=== PATIENT | male | born 1955 | race Caucasian/White ===

== ENCOUNTER 2017-03-07 21:30 | Inpatient (IN) | payer MEDICARE ==
[2017-03-07 23:19] VITALS: BP 102/72
[2017-03-07] MEDS ORDERED: Magnesium Hydroxide (MOM) 30 mL UDC PO PRN (23:40)
[2017-03-07] MEDS ORDERED: Maalox 30 mL Cup PO PRN (23:40)
[2017-03-08] MEDS ORDERED: Multivitamin Tab PO SCH (09:00)
[2017-03-08] MEDS: Albuterol Nebulizer 2.5mg/3mL HHN PRN ×2 (10:43→21:22)
--- NOTE | 2017-03-08 23:51 | Psychosocial Evaluation ---
DATE OF SERVICE: PSYCHIATRIC INITIAL EVALUATION AND MENTAL STATUS EXAM PATIENT'S AGE: 61 SEX: Male. PHYSICIAN: Rosa Collins M.D., M.P.H. CHIEF COMPLAINT: Severe depression and suicidal ideation. HISTORY OF PRESENT ILLNESS: The patient is a 61-year-old male who was admitted to the hospital because of increased depression and because of suicidal ideations with plan to cut his throat. The patient has been paranoid and delusional and has been thinking that "people stealing my money." The patient has been feeling hopeless and helpless and the patient also has lack of energy and lack of patience. The patient states that "I just want to cut my throat like a pig." He also has been having difficulty sleeping at night. PAST PSYCHIATRIC HISTORY: The patient has a history of bipolar disorder. PAST MEDICAL HISTORY: The patient has multiple medical problems including chronic obstructive pulmonary disease and diabetes mellitus. SOCIAL HISTORY: The patient is not but he has 2 children and he was , but twice. He has been depressed because also he has not talked to his children and the children has talked with him course of time. The patient denies any alcohol or street drug use. Denies any legal issues or abuse issues. ALLERGIES: No known allergies. MENTAL STATUS EXAMINATION: The patient appears slightly older than his stated age. Anxious. Sad affect. In a depressed mood. Thought processes are mainly goal directed. The patient denies any auditory or visual hallucinations or delusions. He admits to suicidal ideations, but denies any homicidal ideations. The patient is alert and oriented to time, place, person, and situation. Intact immediate, recent and remote memories. Poor insight. Poor judgment. He seems to be of average intelligence based on his verbal ability. ASSESSMENT: PRIMARY DIAGNOSES: Schizoaffective disorder, bipolar type, with psychotic features, severe. TREATMENT PLAN: We will continue monitoring his behavior and his condition closely. We will continue Seroquel and will adjust the dose. Also, continue to work on his ineffective coping and also adjusting Effexor. ESTIMATED LENGTH OF STAY: 5-7 days. THE PATIENT'S STRENGTHS AND WEAKNESSES: The patient's strength is not clear at this time. Weakness is ineffective coping. AFTER DISCHARGE PLAN: Outpatient treatment and followup will continue as an outpatient. CRITERIA FOR DISCHARGE: The patient will not be suicidal and will stabilize psychotropic medications and will establish outpatient treatment plans. JOB# [id number]
--- NOTE | 2017-03-09 01:07 | History & Physical ---
ADMIT DATE: 03/08/2017 REASON FOR ADMISSION: Psychiatric disorder. HISTORY OF PRESENT ILLNESS: This is a 61-year-old male with an underlying history of COPD; chronic hypoxemic respiratory failure, on BiPAP; hypertension, and mental disorder who was admitted to [facility] for underlying psychiatric illness by Dr. Collins. Dr. Collins requested a medical H and P on this patient. The patient this morning stated that he was complaining of cough and chest congestion for the past few days. Denies any fever, no chills, no vomiting, no body aches, no muscle aches. The patient stated an underlying history of COPD and respiratory failure and wears a BiPAP as needed. Denies any other complaints or concerns. PAST MEDICAL HISTORY: COPD, hypertension, chronic respiratory failure, and mental disorder. PAST SURGICAL HISTORY: Had melanoma surgery on the lip area in the past. FAMILY HISTORY: Denies. SOCIAL HISTORY: Lives alone. Chronic smoker. Denies any alcohol or street drug use. CURRENT MEDICATIONS: The patient is currently on Tylenol, Mylanta, albuterol, Levaquin, Ativan, Lopressor, Milk of magnesia, vitamin C, Seroquel, and Ambien. REVIEW OF SYSTEMS: The patient denies any fever, no chills, no nausea, no vomiting, no abdominal pain, no headache, no trouble vision, no trouble speech, no diarrhea, no vomiting, no melena, no chest pain, no shortness of breath. Complains of a cough and chest congestion. PHYSICAL EXAMINATION: VITAL SIGNS: Temperature 95.3, pulse 101, respirations 20, blood pressure ____ nasal cannula. GENERAL APPEARANCE: The patient does not seem in distress, was lying comfortably, in the bed. HEART: S1 and S2 normal. LUNGS: Bilateral S1 and S2 audible. ABDOMEN: Soft and nontender. NEUROLOGIC: Alert, awake, and oriented. Follows commands. No focal deficits. EXTREMITIES: No edema, no calf tenderness. LABORATORY DATA: Available lab data has been reviewed. ASSESSMENT: 1. Acute bronchitis. 2. Chronic obstructive pulmonary disease. 3. Chronic hypoxemic respiratory failure. 4. Hypertension. 5. Nicotine dependency. 6. Mental disorder. PLAN: The patient was started on Levaquin and bronchodilators. Continue the patient's BiPAP machine. Smoking cessation advised. Metoprolol for blood pressure control. Monitor blood pressure. Spiriva ordered. Psych evaluation and management per Dr. Collins. Thank you, Dr. Collins, for allowing me to participate in the care of this patient. The plan of care discussed with nursing staff. JOB# [id number]
[2017-03-09] MEDS: Albuterol Nebulizer 2.5mg/3mL HHN PRN (01:45)
--- NOTE | 2017-03-10 22:57 | Discharge Summary ---
DATE OF DISCHARGE: 03/09/2017 AGE: 61. SEX: Male. PHYSICIAN: Rosa Collins M.D., M.P.H. PRIMARY DIAGNOSIS: Bipolar disorder, depressed phase. REASON FOR HOSPITALIZATION: The patient was admitted to the hospital because of increased agitation and irritability and inability to follow any directions and also depression and agitation. HOSPITAL COURSE: The patient continued to be anxious and in a depressed mood. The patient also was guarded and withdrawn. The patient also was not able to cope with the stresses. He also was having chest pain and the patient was transferred to ICU because of chest pain. PHYSICAL EXAMINATION UPON ADMISSION: Showed no major medical problems, but the patient developed chest pain and was transferred to ICU. AFTER DISCHARGE PLANS: The patient will be followed in ICU. EXPECTED OUTCOME AFTER DISCHARGE: Depends on the patient's condition in ICU. [facility]# [id number]
== END 2017-03-09 02:40 | DRG 885 ==
LOC: GERO 21:30
PROVIDERS: ADMIT Psychiatry & Neurology Psychiatry; ATTEND Psychiatry & Neurology Psychiatry
PROC: 5A09457 Assistance with Respiratory Ventilation, 24-96 Consecutive Hours, Continuous Positive Airway Pressure (ICD-10-PCS; principal; 2017-03-07)
DX: F25.0 Schizoaffective disorder, bipolar type (principal); J96.10 Chronic respiratory failure, unspecified whether with hypoxia or hypercapnia; J44.0 Chronic obstructive pulmonary disease with (acute) lower respiratory infection; R45.851 Suicidal ideations; E11.9 Type 2 diabetes mellitus without complications; J20.9 Acute bronchitis, unspecified; F29 Unspecified psychosis not due to a substance or known physiological condition; I10 Essential (primary) hypertension; F17.210 Nicotine dependence, cigarettes, uncomplicated; Z71.6 Tobacco abuse counseling
CPT/HCPCS: 36415-UA; 82948-90; 84484-TC; 93005; 94640; 94660; 94760; J7613; Z7610

== ENCOUNTER 2017-03-09 02:40 | Inpatient (IN) | payer MEDICARE ==
[2017-03-09 04:05] VITALS: BP 121/81
[2017-03-09] MEDS: Acetaminophen 500 MG TAB PO PRN ×2 (05:00→10:42)
[2017-03-09] MEDS ORDERED: Albuterol Nebulizer 2.5mg/3mL HHN PRN ×2 (07:31→08:15)
[2017-03-09] MEDS ORDERED: Albuterol Nebulizer 2.5mg/3mL HHN ONE (07:37)
--- NOTE | 2017-03-09 07:49 | Diagnostic Imaging Report ---
CHEST X-RAY: AP view INDICATION: pain COMPARISON: None FINDINGS: Chronic lung changes are seen with no focal consolidation or effusions. Heart size is normal. Mildly tortuous aorta is noted. A spinal stimulator is noted. Degenerative changes of the spine are noted. IMPRESSION: Chronic lung changes with no focal airspace consolidation identified. Spinal stimulator noted.
[2017-03-09] MEDS ORDERED: Albuterol/Ipratropium Neb 3 ML AERS HHN PRN (09:16)
[2017-03-09] MEDS ORDERED: Magnesium Hydroxide (MOM) 30 mL UDC PO PRN (09:18)
[2017-03-09] MEDS ORDERED: Aluminum Hydroxide 30 mL UDC PO PRN (09:18)
[2017-03-09 09:36] LABS: pH 7.47 (7.35-7.45)
[2017-03-09 09:37] LABS: ALLEN TEST YES
--- NOTE | 2017-03-09 09:45 | History & Physical ---
ADMIT DATE: 03/09/2017 CHIEF COMPLAINT: Chest pain. HISTORY OF PRESENT ILLNESS: A 61-year-old male who was admitted to [facility] for psychotic disorder exacerbation. The patient was experiencing chest pain, which allowed him to transfer to medical floor. The patient was admitted to medical floor and patient needs evaluation for his chest pain. I did interview him today and tells me that he was admitted at [facility] for suicidal ideation, but he was started to have a cough, congestion and shortness of breath 2-3 days prior to his presentation of chest pain. He states that his chest pain gets worse when he coughs. The patient has productive cough which he brings up green-yellow phlegm. The patient denies any paroxysmal nocturnal dyspnea or orthopnea, but has exertional shortness of breath. The patient has subjective symptoms of feverish feeling, but no chills. The patient denies any headache, denies any blurred vision, double vision. Denies any dysphagia or odynophagia. Denies any abdominal pain, nausea, vomiting, heartburn, diarrhea, dysuria, hematuria, hematochezia, melena. No history of any seizure or syncopal episode. PAST MEDICAL HISTORY: Remarkable for COPD, hypertension, psychotic disorder as well as osteoarthritis. The patient has a history of melanoma as well. MEDICATIONS: List has been reviewed and reconciled appropriately. ALLERGIES: The patient is not allergic to medications. SOCIAL HISTORY: He lives in [place]. He smokes cigarette. Denies any alcohol or drug use. FAMILY MEDICAL HISTORY: Remarkable for diabetes and hypertension. REVIEW OF SYSTEMS: As I mentioned in history of present illness. PHYSICAL EXAMINATION: GENERAL: A 61-year-old, alert, awake, lying in the bed, without any acute distress. VITAL SIGNS: Temperature 98, pulse is 106, respiratory rate is 20, blood pressure 130/70. HEENT: Normocephalic, atraumatic. Extraocular muscles are intact. Tongue was pink and coated. Oropharynx congested. Oral mucosa congested. NECK: Supple, no JVD, no hepatojugular reflex. No lymphadenopathy, thyromegaly or carotid bruit. HEART: Both heart sounds are regular. No S3, no S4, no murmur. CHEST: Lung equal in expansion with expiratory wheezing throughout. ABDOMEN: Soft. No guarding, no rigidity. Liver, spleen palpable. No palpable mass. Palpable ventral abdominal hernia noted. EXTREMITIES: No edema, no cyanosis, or clubbing. Pulses are +2. No calf tenderness noted. NEUROLOGIC: Alert, awake, oriented, following commands. No gross neuro deficit noted. AVAILABLE DIAGNOSTIC DATA: Chest x-ray performed on 03/09/2017, chronic lung changes, no focal airspace consolidation, spinal stimulator was noted. His troponin was 0.01. EKG has no ST-T wave changes representing acute ischemia. CLINICAL IMPRESSION: 1. Chronic obstructive pulmonary disease exacerbation. 2. Chest pain, mostly musculoskeletal due to excessive coughing. 3. Psychotic disorder exacerbation. 4. Degenerative joint disease. 5. Hypertension by history. 6. History of stimulator, chronic stimulator placement. PLAN: 1. Admit this patient to Med/Surg floor. 2. Oxygen. 3. IV steroid. 4. IV antibiotic. 5. Nebulizer treatment. 6. Psych consult. 7. Appropriate home medicine reconciliation. 8. Symptoms management. 9. Follow lab. 10. Follow psychiatrist recommendation. 11. Care plan reviewed and discussed with the patient as well as his assigned RN. JOB# [id number]
[2017-03-09 10:04] LABS: EOSINOPHILE ABSOLUTE 0.4 Th/cmm (0.1-0.4); HEMATOCRIT 40.2 % (41.0-60); HEMOGLOBIN 13.7 gm/dL (12-16); LYMPHOCYTE ABSOLUTE 0.2 Th/cmm (1.5-3.0); MANUAL DIFF REQUIRED? YES; MEAN CELL VOLUME 90.6 fl (80-99); MEAN CORPUSCULAR HEMOGLOBIN 30.9 pg (26.0-30.0); MEAN CORPUSCULAR HGB CONC 34.1 pg (28.0-36.0); MEAN PLATELET VOLUME 5.9 fl; MONOCYTE ABSOLUTE 2.8 Th/cmm (0.3-1.0); NEUTROPHILE ABSOLUTE 5.2 Th/cmm (1.8-8.0); PLATELET COUNT 305 Th/cmm (150-400); RED BLOOD COUNT 4.44 Mil/cmm (4.30-5.70); RED CELL DISTRIBUTION WIDTH 14.1 % (11.5-20.0); WHITE BLOOD COUNT 8.6 Th/cmm (4.8-10.8)
[2017-03-09 10:07] LABS: TOTAL CELLS COUNTED 100
[2017-03-09 10:20] LABS: ANION GAP 10.7 (7.0-16.0); BUN - UREA NITROGEN 27 mg/dL (7-25); CALCIUM SERUM 8.7 mg/dL (8.6-10.3); CARBON DIOXIDE 29.9 mEq/L (21.0-31.0); CHLORIDE 100 mEq/L (98-107); CREATININE - SERUM 0.7 mg/dL (0.7-1.3); GFR AFRICAN-AMERICAN > 60.0 ml/min (>90); GFR NON AFRICAN-AMERICAN > 60.0 ml/min; GLUCOSE 163 mg/dL (70-105); POTASSIUM SERUM 3.6 mEq/L (3.5-5.1); SODIUM SERUM 137 mEq/L (136-145)
[2017-03-09 10:22] LABS: EOSINOPHIL 1 % (0-5); LYMPHOCYTE 22 % (20-50); MONOCYTE 6 % (2-10); NEUTROPHILS 71 % (40-80)
[2017-03-09] MEDS: Albuterol/Ipratropium Neb 3 ML AERS HHN SCH ×2 (12:39→19:26)
[2017-03-09] MEDS: Azithromycin 500 MG in Sodium Chloride 0.9% 250 ML IV SCH (13:52)
[2017-03-09] MEDS: Hydrocodone/APAP 10 mg/325 mg Tab PO PRN (16:22)
[2017-03-10] MEDS: Albuterol/Ipratropium Neb 3 ML AERS HHN SCH ×4 (01:20→19:30)
--- NOTE | 2017-03-10 02:49 | Consultation ---
DATE OF CONSULTATION: 03/09/[address] Iverson. HISTORY AND PHYSICAL: This is a 61-year-old obese male patient, who has been admitted to [facility] for psychotic disorder and suicidal tendency. The patient developed chest pain. At this time, the patient is admitted to telemetry bed. Cardiac consult requested. No history of PND or orthopnea. PAST MEDICAL HISTORY: Nicotine dependence, COPD, hypertension, psychotic disorder, melanoma. FAMILY HISTORY: Unremarkable. SOCIAL HISTORY: The patient has a history of smoking. ALLERGIES: None. PHYSICAL EXAMINATION: VITAL SIGNS: Blood pressure 130/80, pulse 70, respirations 20. HEAD: Normocephalic. No lumps or bumps. EYES: Pupils equal and reactive to light. Fundi show AV nicking, sclerae white, conjunctivae pink. NECK: Carotid 2+. Normal upstroke. JVD flat. Thyroid not palpable. Lymph nodes not palpable. CHEST: Shows increased AP diameter. No kyphosis, scoliosis. LUNGS: Bilateral bronchovesicular breath sounds. Occasional wheeze. No rales. HEART: PMI fifth intercostal space with lateral to midclavicular line. S1 and S2. No S3 or S4. Soft systolic murmur. ABDOMEN: Soft. Liver and spleen not palpable. No organomegaly. Bowel sounds active. NEUROLOGIC: No focal neurological deficit. EXTREMITIES: Peripheral pulses 2+. No pedal edema. CLINICAL IMPRESSION: Atypical chest pain, chronic obstructive pulmonary disease, nicotine dependence, psychotic disorder, melanoma, hyperlipidemia, and obesity. PLAN: Admit the patient. We will get troponin level, EKG, and echocardiogram. Monitor the patient. JOB# [id number]
[2017-03-10 05:35] LABS: EOSINOPHILE ABSOLUTE 0.7 Th/cmm (0.1-0.4); HEMATOCRIT 40.3 % (41.0-60); HEMOGLOBIN 13.5 gm/dL (12-16); LYMPHOCYTE ABSOLUTE 0.2 Th/cmm (1.5-3.0); MANUAL DIFF REQUIRED? YES; MEAN CELL VOLUME 91.6 fl (80-99); MEAN CORPUSCULAR HEMOGLOBIN 30.7 pg (26.0-30.0); MEAN CORPUSCULAR HGB CONC 33.5 pg (28.0-36.0); MEAN PLATELET VOLUME 6.4 fl; MONOCYTE ABSOLUTE 2.3 Th/cmm (0.3-1.0); NEUTROPHILE ABSOLUTE 5.3 Th/cmm (1.8-8.0); PLATELET COUNT 282 Th/cmm (150-400); RED CELL DISTRIBUTION WIDTH 13.9 % (11.5-20.0); WHITE BLOOD COUNT 8.5 Th/cmm (4.8-10.8)
[2017-03-10 06:00] LABS: ALB/GLOB RATIO 1.6 (1.0-1.8); ALBUMIN 3.8 gm/dL (4.2-5.5); ALKALINE PHOSPHATASE 47 U/L (34-104); ANION GAP 10.3 (7.0-16.0); BILIRUBIN,TOTAL 0.3 mg/dL (0.3-1.0); BUN - UREA NITROGEN 23 mg/dL (7-25); CALCIUM SERUM 8.6 mg/dL (8.6-10.3); CHLORIDE 101 mEq/L (98-107); CREATININE - SERUM 0.6 mg/dL (0.7-1.3); GFR AFRICAN-AMERICAN > 60.0 ml/min (>90); GFR NON AFRICAN-AMERICAN > 60.0 ml/min; GLUCOSE 164 mg/dL (70-105); POTASSIUM SERUM 4.3 mEq/L (3.5-5.1); SGOT 13 U/L (13-39); SGPT/ALT 17 U/L (7-52); SODIUM SERUM 135 mEq/L (136-145); TOTAL PROTEIN,SERUM 6.2 gm/dL (6.0-8.3)
[2017-03-10 06:25] LABS: BAND NEUTROPHILE 5 % (0-10); NEUTROPHILS 88 % (40-80); TOTAL CELLS COUNTED 100
[2017-03-10 06:26] LABS: LYMPHOCYTE 4 % (20-50); MONOCYTE 3 % (2-10)
[2017-03-10] MEDS: Hydrocodone/APAP 10 mg/325 mg Tab PO PRN ×2 (07:46→13:56)
--- NOTE | 2017-03-10 08:34 | General Progress Note ---
Subjective - Review of Systems Subjective: Patient is seen and examined. Patient says I feel little better, patient has minimal pain.Patient denies fever ,chill,chest pain,headache,nausea,vomiting. Objective - Results Result Diagrams: 03/10/17 05:00 03/10/17 05:00 Recent Labs: Laboratory Last Values WBC 8.5 Th/cmm (4.8-10.8) 03/10/17 05:00 RBC 4.40 Mil/cmm (4.30-5.70) 03/10/17 05:00 Hgb 13.5 gm/dL (12-16) 03/10/17 05:00 Hct 40.3 % (41.0-60) L 03/10/17 05:00 MCV 91.6 fl (80-99) 03/10/17 05:00 MCH 30.7 pg (26.0-30.0) H 03/10/17 05:00 MCHC Differential 33.5 pg (28.0-36.0) 03/10/17 05:00 RDW 13.9 % (11.5-20.0) 03/10/17 05:00 Plt Count 282 Th/cmm (150-400) 03/10/17 05:00 MPV 6.4 fl 03/10/17 05:00 Band Neutrophils % 5 % (0-10) 03/10/17 05:00 Neutrophils (Manual) 88 % (40-80) H 03/10/17 05:00 Lymphocytes 4 % (20-50) L 03/10/17 05:00 Monocytes 3 % (2-10) 03/10/17 05:00 Eosinophils 1 % (0-5) 03/09/17 09:50 Specimen Source Arterial 03/09/17 09:15 Sample Site Right Radial 03/09/17 09:15 pH 7.47 (7.35-7.45) H 03/09/17 09:15 pCO2 44.0 mmHg (35.0-45.0) 03/09/17 09:15 pO2 55.0 mmHg (80.0-100.0) L 03/09/17 09:15 HCO3 30.5 mEq/L (20.0-26.0) H 03/09/17 09:15 Base Excess 7.4 mEq/L (-3.0-3.0) H 03/09/17 09:15 O2 Saturation 90.0 % (92.0-100.0) L 03/09/17 09:15 Anthony Test YES 03/09/17 09:15 Vent Rate NA 03/09/17 09:15 Inspired O2 21 03/09/17 09:15 Tidal Volume NA 03/09/17 09:15 PEEP NA 03/09/17 09:15 Pressure (ins/psv/peep) NA 03/09/17 09:15 Critical Value SH 03/09/17 09:15 Sodium 135 mEq/L (136-145) L 03/10/17 05:00 Potassium 4.3 mEq/L (3.5-5.1) 03/10/17 05:00 Chloride 101 mEq/L (98-107) 03/10/17 05:00 Carbon Dioxide 28.0 mEq/L (21.0-31.0) 03/10/17 05:00 Anion Gap 10.3 (7.0-16.0) 03/10/17 05:00 BUN 23 mg/dL (7-25) 03/10/17 05:00 Creatinine 0.6 mg/dL (0.7-1.3) L 03/10/17 05:00 Est GFR ( Amer) > 60.0 ml/min (>90) 03/10/17 05:00 Est GFR (Non-Af Amer) > 60.0 ml/min 03/10/17 05:00 BUN/Creatinine Ratio 38.3 03/10/17 05:00 Glucose 164 mg/dL (70-105) H 03/10/17 05:00 Calcium 8.6 mg/dL (8.6-10.3) 03/10/17 05:00 Total Bilirubin 0.3 mg/dL (0.3-1.0) 03/10/17 05:00 AST 13 U/L (13-39) 03/10/17 05:00 ALT 17 U/L (7-52) 03/10/17 05:00 Alkaline Phosphatase 47 U/L (34-104) 03/10/17 05:00 Troponin I 0.01 ng/mL (0.01-0.05) 03/09/17 09:50 Total Protein 6.2 gm/dL (6.0-8.3) 03/10/17 05:00 Albumin 3.8 gm/dL (4.2-5.5) L 03/10/17 05:00 Globulin 2.4 gm/dL 03/10/17 05:00 Albumin/Globulin Ratio 1.6 (1.0-1.8) 03/10/17 05:00 - Physical Exam Vitals and I&O: Vital Signs Temp 97 F 03/10/17 04:24 Pulse 118 03/10/17 04:24 Resp 22 03/10/17 06:00 BP 110/80 03/10/17 04:24 Pulse Ox 98 03/10/17 05:15 Intake & Output 03/09/17 03/10/17 03/10/17 18:59 06:59 18:59 Intake Total 800 150 Output Total 1000 Balance -200 150 Weight (lbs) 87.543 kg 87.09 kg Intake: Oral 800 150 Output: Urine 1000 Other: # Voids 3 # Bowel Movements 1 0 Active Medications: Current Medications Acetaminophen (Tylenol Extra Strength) 500 mg PO Q6H PRN PRN Reason: Pain (Mild) Stop: 05/08/17 04:28 Last Admin: 03/09/17 10:42 Dose: 500 mg Acetaminophen (Tylenol) 650 mg PO Q4H PRN PRN Reason: Pain or Fever >101 Acetaminophen/Hydrocodone Bitart (Varney 10 Mg/325 Mg) 1 tab PO Q6H PRN PRN Reason: MODERATE PAIN Stop: 05/08/17 09:16 Last Admin: 03/10/17 07:46 Dose: 1 tab Al Hydrox/Mg Hydrox/Simethicone (Maalox) 30 ml PO PCHS PRN PRN Reason: GI DISTRESS Stop: 05/08/17 09:17 Albuterol/Ipratropium (Duoneb Neb) 3 ml HHN Q6HRT [facility] Stop: 05/08/17 12:59 Last Admin: 03/10/17 01:20 Dose: 3 ml Albuterol/Ipratropium (Duoneb Neb) 3 ml HHN Q2HRT PRN PRN Reason: Wheezing Stop: 05/08/17 09:15 Azithromycin 500 mg/ Sodium (Chloride) 250 mls @ 250 mls/hr IV Q24H [facility] Stop: 05/08/17 10:59 Last Admin: 03/09/17 13:52 Dose: 250 mls/hr Lorazepam (Ativan) 0.5 mg PO Q4HR [facility] PRN Reason: Protocol Stop: 05/08/17 11:59 Last Admin: 03/10/17 07:46 Dose: 0.5 mg Magnesium Hydroxide (Milk Of Magnesia) 30 ml PO HS PRN PRN Reason: GI DISTRESS Stop: 05/08/17 09:17 Methylprednisolone Sodium Succinate (Solu-Medrol) 60 mg IV Q8HR [facility] Stop: 05/08/17 12:59 Last Admin: 03/10/17 05:54 Dose: 60 mg Multivitamins/Vitamin C (Theragran) 1 tab PO DAILY [facility] Stop: 05/09/17 08:59 Nitroglycerin (Nitrostat) 0.4 mg SL Q5MIN PRN PRN Reason: Chest Pain Stop: 05/08/17 09:17 Quetiapine Fumarate (Seroquel) 50 mg PO HS [facility] PRN Reason: Protocol Stop: 05/08/17 20:59 Last Admin: 03/09/17 21:06 Dose: 50 mg Quetiapine Fumarate (Seroquel) 100 mg PO BID [facility] PRN Reason: Protocol Stop: 05/08/17 08:59 Last Admin: 03/09/17 16:22 Dose: 100 mg Trazodone HCl (Desyrel) 100 mg PO HS [facility] Stop: 05/08/17 20:59 Last Admin: 03/09/17 21:06 Dose: 100 mg Venlafaxine HCl (Effexor Xr) 150 mg PO DAILY [facility] Stop: 05/08/17 08:59 Last Admin: 03/09/17 09:14 Dose: 150 mg Zolpidem Tartrate (Ambien) 5 mg PO HS PRN PRN Reason: Insomnia Stop: 05/08/17 20:59 General: Alert, Oriented x3, Cooperative, No acute distress HEENT: Atraumatic, PERRLA, EOMI, Mucous membr. moist/pink Neck: Supple, JVD, +2 carotid pulse wo bruit Cardiovascular: Regular rate, Normal S1, Normal S2 Lungs: Normal air movement, Other (diffuse rhonchi+_) Abdomen: Bowel sounds, Soft Extremities: Pulses Neurological: Normal gait, Normal speech, Strength at 5/5 X4 ext Psych/Mental Status: Other (labile) Assessment/Plan - Assessment Assessment: COPD exacerbation. Atypical Chest pain. Psych disorder. Hypertension. DJD. SCOTT. Chronic pain syndrome S/p nerve stimulator and marijuana dependance. Obesity. ? Diabetes hx. - Plan Plan: Oxygen, HHN. IV antibiotics IV steroid Psych meds Psych follow up General nursing care Symptoms control Glycohemoglobin A1c Monitor BP and keep BP med. C PAP at night time. Discussed with RN.
[2017-03-10] MEDS: Multivitamin Tab PO SCH (08:48)
[2017-03-10] MEDS: Azithromycin 500 MG in Sodium Chloride 0.9% 250 ML IV SCH (10:41)
[2017-03-10] MEDS ORDERED: INSULIN ASPART SLIDING SCALE 100 UNITS/ML UNIT SUBQ SCH (11:30)
--- NOTE | 2017-03-10 14:24 | Cardiology ---
03/09/2017 ECHOCARDIOGRAM REPORT A patient of Dr. Iverson. M-MODE ECHOCARDIOGRAM: Mitral valve, anterior leaflet of mitral valve shows normal excursion, EF velocity. Posterior leaflet of mitral valve shows normal excursion. Left ventricular posterior wall shows increased thickness, normal excursion. Interventricular septum shows increased thickness, normal excursion. Hypertrophy of the left ventricle, ejection fraction 50%. Left atrium normal. Aortic root shows normal dimension, normal excursion of aortic leaflets. CONCLUSION: Hypertrophy of the left ventricle, ejection fraction 50%. 2D ECHO: Long axis view showed normal sized left ventricle with hypertrophy of the left ventricle. Left atrium normal. Aortic root shows normal dimension, normal excursion of aortic leaflets. Short axis view of mitral valve normal. Short axis view of aortic valve normal. Apical four chamber view showed normal sized left ventricle with hypertrophy of the left ventricle. Left atrium normal. Right ventricular cavity, right atrium normal, no pericardial effusion. CONCLUSION: Hypertrophy of the left ventricle, ejection fraction 50%. Doppler study shows normal antegrade flow across the mitral valve, tricuspid valve, and the aortic valve. [facility]# [id number]
[2017-03-10] MEDS ORDERED: Probiotic Screen MC PRN (15:45)
[2017-03-10] MEDS: INSULIN ASPART SLIDING SCALE 100 UNITS/ML UNIT SUBQ SCH ×2 (16:21→20:34)
--- NOTE | 2017-03-10 16:26 | Progress Notes ---
DATE: 03/09/2017 The patient in ICU 6. The patient is transferred from [facility] to ICU because the patient developed chest pain. The patient currently is calm and cooperative and he denies any chest pain. Also is following the staff's directions easily. The patient also is compliant with taking his medications with no side effects of medications. ASSESSMENT: The patient still needs close monitoring. TREATMENT PLAN: Continue to monitor his behavior and his medications and continue to work on his irritability which was the main reason for admitting him to [facility]. JOB# [id number]
[2017-03-10 16:50] LABS: A1C % 6.8 % (4.0-6.0)
[2017-03-10] MEDS: Nicotine 21 mg/24 hr Tdm TD SCH (17:24)
[2017-03-10] MEDS: Maalox 30 mL Cup PO PRN (20:36)
[2017-03-11] MEDS: Albuterol/Ipratropium Neb 3 ML AERS HHN SCH ×4 (01:24→19:40)
[2017-03-11 06:07] LABS: ALB/GLOB RATIO 1.6 (1.0-1.8); ALBUMIN 3.6 gm/dL (4.2-5.5); ALKALINE PHOSPHATASE 50 U/L (34-104); ANION GAP 7.7 (7.0-16.0); BILIRUBIN,TOTAL 0.2 mg/dL (0.3-1.0); BUN - UREA NITROGEN 25 mg/dL (7-25); CALCIUM SERUM 8.5 mg/dL (8.6-10.3); CARBON DIOXIDE 29.7 mEq/L (21.0-31.0); CHLORIDE 104 mEq/L (98-107); CREATININE - SERUM 0.6 mg/dL (0.7-1.3); GFR AFRICAN-AMERICAN > 60.0 ml/min (>90); GFR NON AFRICAN-AMERICAN > 60.0 ml/min; GLUCOSE 158 mg/dL (70-105); POTASSIUM SERUM 4.4 mEq/L (3.5-5.1); SGOT 10 U/L (13-39); SGPT/ALT 15 U/L (7-52); SODIUM SERUM 137 mEq/L (136-145); TOTAL PROTEIN,SERUM 5.8 gm/dL (6.0-8.3)
[2017-03-11 06:09] LABS: EOSINOPHILE ABSOLUTE 0.1 Th/cmm (0.1-0.4); HEMOGLOBIN 12.2 gm/dL (12-16); LYMPHOCYTE ABSOLUTE 0.6 Th/cmm (1.5-3.0); MANUAL DIFF REQUIRED? YES; MEAN CELL VOLUME 91.5 fl (80-99); MEAN CORPUSCULAR HEMOGLOBIN 31.4 pg (26.0-30.0); MEAN CORPUSCULAR HGB CONC 34.4 pg (28.0-36.0); MEAN PLATELET VOLUME 6.5 fl; MONOCYTE ABSOLUTE 0.5 Th/cmm (0.3-1.0); NEUTROPHILE ABSOLUTE 16.2 Th/cmm (1.8-8.0); PLATELET COUNT 271 Th/cmm (150-400); RED BLOOD COUNT 3.89 Mil/cmm (4.30-5.70); RED CELL DISTRIBUTION WIDTH 13.8 % (11.5-20.0)
[2017-03-11 06:22] LABS: HEMATOCRIT 35.6 % (41.0-60); WHITE BLOOD COUNT 17.4 Th/cmm (4.8-10.8)
[2017-03-11 06:33] LABS: BAND NEUTROPHILE 4 % (0-10); LYMPHOCYTE 6 % (20-50); MONOCYTE 3 % (2-10); NEUTROPHILS 87 % (40-80); TOTAL CELLS COUNTED 100
[2017-03-11] MEDS: INSULIN ASPART SLIDING SCALE 100 UNITS/ML UNIT SUBQ SCH ×4 (06:45→21:32)
[2017-03-11] MEDS: Multivitamin Tab PO SCH (08:27)
[2017-03-11] MEDS: Hydrocodone/APAP 10 mg/325 mg Tab PO PRN ×2 (08:27→17:07)
[2017-03-11] MEDS: Nicotine 21 mg/24 hr Tdm TD SCH (08:27)
[2017-03-11] MEDS ORDERED: Lactobacillus Rhamnosus GG 15 Billion CFU CAP.SPRINK PO SCH (09:00)
--- NOTE | 2017-03-11 09:13 | General Progress Note ---
Subjective - Review of Systems Subjective: Patient is seen and examined. Patient says I feel much better .Patient denies fever,chill,chest pain,headache ,nausea,vomiting. Objective - Results Result Diagrams: 03/11/17 05:15 03/11/17 05:15 Recent Labs: Laboratory Last Values WBC 17.4 Th/cmm (4.8-10.8) H D 03/11/17 05:15 RBC 3.89 Mil/cmm (4.30-5.70) L 03/11/17 05:15 Hgb 12.2 gm/dL (12-16) 03/11/17 05:15 Hct 35.6 % (41.0-60) L D 03/11/17 05:15 MCV 91.5 fl (80-99) 03/11/17 05:15 MCH 31.4 pg (26.0-30.0) H 03/11/17 05:15 MCHC Differential 34.4 pg (28.0-36.0) 03/11/17 05:15 RDW 13.8 % (11.5-20.0) 03/11/17 05:15 Plt Count 271 Th/cmm (150-400) 03/11/17 05:15 MPV 6.5 fl 03/11/17 05:15 Band Neutrophils % 4 % (0-10) 03/11/17 05:15 Neutrophils (Manual) 87 % (40-80) H 03/11/17 05:15 Lymphocytes 6 % (20-50) L 03/11/17 05:15 Monocytes 3 % (2-10) 03/11/17 05:15 Eosinophils 1 % (0-5) 03/09/17 09:50 Specimen Source Arterial 03/09/17 09:15 Sample Site Right Radial 03/09/17 09:15 pH 7.47 (7.35-7.45) H 03/09/17 09:15 pCO2 44.0 mmHg (35.0-45.0) 03/09/17 09:15 pO2 55.0 mmHg (80.0-100.0) L 03/09/17 09:15 HCO3 30.5 mEq/L (20.0-26.0) H 03/09/17 09:15 Base Excess 7.4 mEq/L (-3.0-3.0) H 03/09/17 09:15 O2 Saturation 90.0 % (92.0-100.0) L 03/09/17 09:15 Anthony Test YES 03/09/17 09:15 Vent Rate NA 03/09/17 09:15 Inspired O2 21 03/09/17 09:15 Tidal Volume NA 03/09/17 09:15 PEEP NA 03/09/17 09:15 Pressure (ins/psv/peep) NA 03/09/17 09:15 Critical Value SH 03/09/17 09:15 Sodium 137 mEq/L (136-145) 03/11/17 05:15 Potassium 4.4 mEq/L (3.5-5.1) 03/11/17 05:15 Chloride 104 mEq/L (98-107) 03/11/17 05:15 Carbon Dioxide 29.7 mEq/L (21.0-31.0) 03/11/17 05:15 Anion Gap 7.7 (7.0-16.0) 03/11/17 05:15 BUN 25 mg/dL (7-25) 03/11/17 05:15 Creatinine 0.6 mg/dL (0.7-1.3) L 03/11/17 05:15 Est GFR ( Amer) > 60.0 ml/min (>90) 03/11/17 05:15 Est GFR (Non-Af Amer) > 60.0 ml/min 03/11/17 05:15 BUN/Creatinine Ratio 41.7 03/11/17 05:15 Glucose 158 mg/dL (70-105) H 03/11/17 05:15 POC Glucose 220 MG/DL (70 - 105) H 03/11/17 05:45 Hemoglobin A1c % 6.8 % (4.0-6.0) H 03/10/17 05:00 Calcium 8.5 mg/dL (8.6-10.3) L 03/11/17 05:15 Total Bilirubin 0.2 mg/dL (0.3-1.0) L 03/11/17 05:15 AST 10 U/L (13-39) L 03/11/17 05:15 ALT 15 U/L (7-52) 03/11/17 05:15 Alkaline Phosphatase 50 U/L (34-104) 03/11/17 05:15 Troponin I 0.01 ng/mL (0.01-0.05) 03/09/17 09:50 Total Protein 5.8 gm/dL (6.0-8.3) L 03/11/17 05:15 Albumin 3.6 gm/dL (4.2-5.5) L 03/11/17 05:15 Globulin 2.2 gm/dL 03/11/17 05:15 Albumin/Globulin Ratio 1.6 (1.0-1.8) 03/11/17 05:15 - Physical Exam Vitals and I&O: Vital Signs Temp 97.3 F 03/11/17 08:00 Pulse 93 03/11/17 08:00 Resp 18 03/11/17 08:36 BP 126/87 03/11/17 08:00 Pulse Ox 94 03/11/17 08:00 Intake & Output 03/10/17 03/11/17 03/11/17 18:59 06:59 18:59 Intake Total 250 350 Balance 250 350 Weight (lbs) 87.543 kg Intake: Intake, IV Amount 250 Azithromycin 500 mg In 250 Sodium Chloride 0.9% 250 ml @ 250 mls/hr IV Q24H [facility] Rx#:[id number] Oral 350 Other: # Voids 3 Stool Characteristics Formed Formed Active Medications: Current Medications Acetaminophen (Tylenol Extra Strength) 500 mg PO Q6H PRN PRN Reason: Pain (Mild) Stop: 05/08/17 04:28 Last Admin: 03/09/17 10:42 Dose: 500 mg Acetaminophen (Tylenol) 650 mg PO Q4H PRN PRN Reason: Pain or Fever >101 Acetaminophen/Hydrocodone Bitart ([place] 10 Mg/325 Mg) 1 tab PO Q6H PRN PRN Reason: MODERATE PAIN Stop: 05/08/17 09:16 Last Admin: 03/11/17 08:27 Dose: 1 tab Al Hydrox/Mg Hydrox/Simethicone (Maalox) 30 ml PO PCHS PRN PRN Reason: GI DISTRESS Stop: 05/08/17 09:17 Last Admin: 03/10/17 20:36 Dose: 30 ml Albuterol/Ipratropium (Duoneb Neb) 3 ml HHN Q6HRT [facility] Stop: 05/08/17 12:59 Last Admin: 03/11/17 07:12 Dose: 3 ml Albuterol/Ipratropium (Duoneb Neb) 3 ml HHN Q2HRT PRN PRN Reason: Wheezing Stop: 05/08/17 09:15 Azithromycin 500 mg/ Sodium (Chloride) 250 mls @ 250 mls/hr IV Q24H [facility] Stop: 05/08/17 10:59 Last Infusion: 03/10/17 11:45 Dose: Infused Insulin Aspart (Novolog Insulin Sliding Scale) 0 units SUBQ ACHS [facility] PRN Reason: Protocol Stop: 05/09/17 16:29 Last Admin: 03/11/17 06:45 Dose: 4 units Lorazepam (Ativan) 0.5 mg PO Q4HR [facility] PRN Reason: Protocol Stop: 05/08/17 11:59 Last Admin: 03/11/17 08:27 Dose: 0.5 mg Magnesium Hydroxide (Milk Of Magnesia) 30 ml PO HS PRN PRN Reason: GI DISTRESS Stop: 05/08/17 09:17 Methylprednisolone Sodium Succinate (Solu-Medrol) 60 mg IV Q8HR [facility] Stop: 05/08/17 12:59 Last Admin: 03/11/17 05:25 Dose: 60 mg Miscellaneous (Probiotic Screen) 1 ea MC PRN PRN PRN Reason: PROTOCOL Stop: 05/09/17 15:44 Multivitamins/Vitamin C (Theragran) 1 tab PO DAILY [facility] Stop: 05/09/17 08:59 Last Admin: 03/11/17 08:27 Dose: 1 tab Nicotine (Nicotine Transdermal System) 21 mg TD DAILY [facility] Stop: 05/09/17 16:59 Last Admin: 03/11/17 08:27 Dose: 21 mg Nitroglycerin (Nitrostat) 0.4 mg SL Q5MIN PRN PRN Reason: Chest Pain Stop: 05/08/17 09:17 Quetiapine Fumarate (Seroquel) 50 mg PO HS [facility] PRN Reason: Protocol Stop: 05/08/17 20:59 Last Admin: 03/10/17 20:39 Dose: 50 mg Quetiapine Fumarate (Seroquel) 100 mg PO BID [facility] PRN Reason: Protocol Stop: 05/08/17 08:59 Last Admin: 03/11/17 08:27 Dose: 100 mg Trazodone HCl (Desyrel) 100 mg PO HS [facility] Stop: 05/08/17 20:59 Last Admin: 03/10/17 20:39 Dose: 100 mg Venlafaxine HCl (Effexor Xr) 150 mg PO DAILY [facility] Stop: 05/08/17 08:59 Last Admin: 03/11/17 08:27 Dose: 150 mg Zolpidem Tartrate (Ambien) 5 mg PO HS PRN PRN Reason: Insomnia Stop: 05/08/17 20:59 General: Alert, Oriented x3, Cooperative, No acute distress HEENT: Atraumatic, PERRLA, EOMI, Mucous membr. moist/pink Neck: Supple, JVD, +2 carotid pulse wo bruit Cardiovascular: Regular rate, Normal S1, Normal S2 Lungs: Normal air movement, Other (diffuse rhonchi+_) Abdomen: Bowel sounds, Soft Extremities: Pulses Neurological: Normal gait, Normal speech, Strength at 5/5 X4 ext Psych/Mental Status: Other (labile) - Procedures Procedures: Procedures Procedure Code Date ASSISTANCE WITH RESPIRATORY VENTILATION, 24-96 HRS, CPAP [id number] 03/07/17 Assessment/Plan - Assessment Assessment: COPD exacerbation. Atypical Chest pain. Psych disorder. Hypertension. DJD. SCOTT. Leucocytosis due to steroid. Chronic pain syndrome S/p nerve stimulator and marijuana dependance. Obesity. Steroid induced hyperglycemia. - Plan Plan: Oxygen, HHN. IV antibiotics change to PO zithromax. IV steroid change to PO steroid. Psych meds Psych follow up General nursing care Symptoms control DC planning to ECF. Monitor BP and keep BP med. C PAP at night time. Discussed with RN.
--- NOTE | 2017-03-11 09:25 | Discharge Summary ---
General Discharge Summary - Discharge Summary Date of Admission: 03/09/17 Admitting Diagnosis: Chest pain and dyspnea. Discharge Date: 03/11/17 Discharge Diagnosis: COPD exacerbation. Atypical chest pain. SCOTT. Psych disorder. Chronic pain syndrome. DJD. Hypertension. Laboratory Findings: Laboratory Tests 03/09/17 03/09/17 03/09/17 09:15 09:50 09:50 WBC 8.6 RBC 4.44 Hgb 13.7 Hct 40.2 L MCV 90.6 MCH 30.9 H MCHC Differential 34.1 RDW 14.1 Plt Count 305 MPV 5.9 Band Neutrophils % Neutrophils (Manual) 71 Lymphocytes 22 Monocytes 6 Eosinophils 1 Specimen Source Arterial Sample Site Right Radial pH 7.47 H pCO2 44.0 pO2 55.0 L HCO3 30.5 H Base Excess 7.4 H O2 Saturation 90.0 L Anthony Test YES Vent Rate NA Inspired O2 21 Tidal Volume NA PEEP NA Pressure (ins/psv/peep) NA Critical Value SH Sodium Potassium Chloride Carbon Dioxide Anion Gap BUN Creatinine Est GFR ( Amer) Est GFR (Non-Af Amer) BUN/Creatinine Ratio Glucose POC Glucose Hemoglobin A1c % Calcium Total Bilirubin AST ALT Alkaline Phosphatase Troponin I 0.01 Total Protein Albumin Globulin Albumin/Globulin Ratio 03/09/17 03/10/17 03/10/17 09:50 05:00 05:00 WBC 8.5 RBC 4.40 Hgb 13.5 Hct 40.3 L MCV 91.6 MCH 30.7 H MCHC Differential 33.5 RDW 13.9 Plt Count 282 MPV 6.4 Band Neutrophils % 5 Neutrophils (Manual) 88 H Lymphocytes 4 L Monocytes 3 Eosinophils Specimen Source Sample Site pH pCO2 pO2 HCO3 Base Excess O2 Saturation Anthony Test Vent Rate Inspired O2 Tidal Volume PEEP Pressure (ins/psv/peep) Critical Value Sodium 137 135 L Potassium 3.6 4.3 Chloride 100 101 Carbon Dioxide 29.9 28.0 Anion Gap 10.7 10.3 BUN 27 H 23 Creatinine 0.7 0.6 L Est GFR ( Amer) > 60.0 > 60.0 Est GFR (Non-Af Amer) > 60.0 > 60.0 BUN/Creatinine Ratio 38.6 38.3 Glucose 163 H 164 H POC Glucose Hemoglobin A1c % Calcium 8.7 8.6 Total Bilirubin 0.3 AST 13 ALT 17 Alkaline Phosphatase 47 Troponin I Total Protein 6.2 Albumin 3.8 L Globulin 2.4 Albumin/Globulin Ratio 1.6 03/10/17 03/10/17 03/10/17 05:00 11:33 16:14 WBC RBC Hgb Hct MCV MCH MCHC Differential RDW Plt Count MPV Band Neutrophils % Neutrophils (Manual) Lymphocytes Monocytes Eosinophils Specimen Source Sample Site pH pCO2 pO2 HCO3 Base Excess O2 Saturation Anthony Test Vent Rate Inspired O2 Tidal Volume PEEP Pressure (ins/psv/peep) Critical Value Sodium Potassium Chloride Carbon Dioxide Anion Gap BUN Creatinine Est GFR ( Amer) Est GFR (Non-Af Amer) BUN/Creatinine Ratio Glucose POC Glucose 216 H 152 H Hemoglobin A1c % 6.8 H Calcium Total Bilirubin AST ALT Alkaline Phosphatase Troponin I Total Protein Albumin Globulin Albumin/Globulin Ratio 03/10/17 03/11/17 03/11/17 20:30 05:15 05:15 WBC 17.4 H D RBC 3.89 L Hgb 12.2 Hct 35.6 L D MCV 91.5 MCH 31.4 H MCHC Differential 34.4 RDW 13.8 Plt Count 271 MPV 6.5 Band Neutrophils % 4 Neutrophils (Manual) 87 H Lymphocytes 6 L Monocytes 3 Eosinophils Specimen Source Sample Site pH pCO2 pO2 HCO3 Base Excess O2 Saturation Anthony Test Vent Rate Inspired O2 Tidal Volume PEEP Pressure (ins/psv/peep) Critical Value Sodium 137 Potassium 4.4 Chloride 104 Carbon Dioxide 29.7 Anion Gap 7.7 BUN 25 Creatinine 0.6 L Est GFR ( Amer) > 60.0 Est GFR (Non-Af Amer) > 60.0 BUN/Creatinine Ratio 41.7 Glucose 158 H POC Glucose 257 H Hemoglobin A1c % Calcium 8.5 L Total Bilirubin 0.2 L AST 10 L ALT 15 Alkaline Phosphatase 50 Troponin I Total Protein 5.8 L Albumin 3.6 L Globulin 2.2 Albumin/Globulin Ratio 1.6 03/11/17 05:45 WBC RBC Hgb Hct MCV MCH MCHC Differential RDW Plt Count MPV Band Neutrophils % Neutrophils (Manual) Lymphocytes Monocytes Eosinophils Specimen Source Sample Site pH pCO2 pO2 HCO3 Base Excess O2 Saturation Anthony Test Vent Rate Inspired O2 Tidal Volume PEEP Pressure (ins/psv/peep) Critical Value Sodium Potassium Chloride Carbon Dioxide Anion Gap BUN Creatinine Est GFR ( Amer) Est GFR (Non-Af Amer) BUN/Creatinine Ratio Glucose POC Glucose 220 H Hemoglobin A1c % Calcium Total Bilirubin AST ALT Alkaline Phosphatase Troponin I Total Protein Albumin Globulin Albumin/Globulin Ratio Hospital Course: 61 yrs old male admitted to tele unit from [facility] for evaluation of chest pain. Please refer to my HP for further information. Patient was seen by me and found to have COPD exacerbation. Patient was given IV steroid,IV antibiotics and HHN. Patient also had 3 set of cardiac enzymes and ekg which were negative for acute DC. cardiology consult was also requested. 2D echo was consistent with LVH. Patient was seen by psych and placed him on 1;1 sitter. Patient's psych meds were adjusted. Patient significantly improved from his medical illness. All his IV meds switch to PO meds.Patient is DC to [facility] for rehab and nursing care. Condition at Discharge: Stable Disposition: Discharge/Transfered to SNF Home Medications: Home Medication Medication Instructions Recorded Type Metoprolol Tartrate [Lopressor] 25 mg PO BID 03/08/17 History QUEtiapine Fumarate [SEROquel] 50 mg PO HS 03/08/17 History QUEtiapine Fumarate [SEROquel] 100 mg PO BID 03/08/17 History Trazodone HCl 100 mg PO HS 03/08/17 History Venlafaxine HCl [Venlafaxine HCl 150 mg PO DAILY 03/08/17 History ER] Acetaminophen [Pain Reliever] 650 mg PO Q4H PRN 03/09/17 History Albuterol Nebulizer 2.5mg/3mL 2.5 mg IH Q4HR PRN 03/09/17 History [Albuterol Neb UD*] Aluminum Hydroxide [Amphojel] 320 mg PO PCHS PRN 03/09/17 History Levofloxacin [Levaquin] 500 mg PO AC 03/09/17 History Lorazepam [Ativan] 0.5 mg PO Q4HR 03/09/17 History Magnesium Hydroxide [Milk of 30 ml PO HS PRN 03/09/17 History Magnesia] Multivitamin [Theragran] 1 tab PO DAILY 03/09/17 History Nitroglycerin [Nitrostat*] 0.4 mg SL Q5MIN PRN 03/09/17 History Zolpidem Tartrate [Ambien] 5 mg PO HS PRN 03/09/17 History Inpatient Medications: Current Medications Acetaminophen (Tylenol Extra Strength) 500 mg PO Q6H PRN PRN Reason: Pain (Mild) Stop: 05/08/17 04:28 Last Admin: 03/09/17 10:42 Dose: 500 mg Acetaminophen (Tylenol) 650 mg PO Q4H PRN PRN Reason: Pain or Fever >101 Acetaminophen/Hydrocodone Bitart ([place] 10 Mg/325 Mg) 1 tab PO Q6H PRN PRN Reason: MODERATE PAIN Stop: 05/08/17 09:16 Last Admin: 03/11/17 08:27 Dose: 1 tab Al Hydrox/Mg Hydrox/Simethicone (Maalox) 30 ml PO PCHS PRN PRN Reason: GI DISTRESS Stop: 05/08/17 09:17 Last Admin: 03/10/17 20:36 Dose: 30 ml Albuterol/Ipratropium (Duoneb Neb) 3 ml HHN Q6HRT [facility] Stop: 05/08/17 12:59 Last Admin: 03/11/17 07:12 Dose: 3 ml Albuterol/Ipratropium (Duoneb Neb) 3 ml HHN Q2HRT PRN PRN Reason: Wheezing Stop: 05/08/17 09:15 Azithromycin (Zithromax) 500 mg PO DAILY [facility] Stop: 03/25/17 08:59 Insulin Aspart (Novolog Insulin Sliding Scale) 0 units SUBQ ACHS [facility] PRN Reason: Protocol Stop: 05/09/17 16:29 Last Admin: 03/11/17 06:45 Dose: 4 units Lorazepam (Ativan) 0.5 mg PO Q4HR [facility] PRN Reason: Protocol Stop: 05/08/17 11:59 Last Admin: 03/11/17 08:27 Dose: 0.5 mg Magnesium Hydroxide (Milk Of Magnesia) 30 ml PO HS PRN PRN Reason: GI DISTRESS Stop: 05/08/17 09:17 Miscellaneous (Probiotic Screen) 1 ea MC PRN PRN PRN Reason: PROTOCOL Stop: 05/09/17 15:44 Multivitamins/Vitamin C (Theragran) 1 tab PO DAILY [facility] Stop: 05/09/17 08:59 Last Admin: 03/11/17 08:27 Dose: 1 tab Nicotine (Nicotine Transdermal System) 21 mg TD DAILY [facility] Stop: 05/09/17 16:59 Last Admin: 03/11/17 08:27 Dose: 21 mg Nitroglycerin (Nitrostat) 0.4 mg SL Q5MIN PRN PRN Reason: Chest Pain Stop: 05/08/17 09:17 Prednisone (Deltasone) 20 mg PO BID [facility] Stop: 05/10/17 16:59 Quetiapine Fumarate (Seroquel) 50 mg PO HS [facility] PRN Reason: Protocol Stop: 05/08/17 20:59 Last Admin: 03/10/17 20:39 Dose: 50 mg Quetiapine Fumarate (Seroquel) 100 mg PO BID [facility] PRN Reason: Protocol Stop: 05/08/17 08:59 Last Admin: 03/11/17 08:27 Dose: 100 mg Trazodone HCl (Desyrel) 100 mg PO HS [facility] Stop: 05/08/17 20:59 Last Admin: 03/10/17 20:39 Dose: 100 mg Venlafaxine HCl (Effexor Xr) 150 mg PO DAILY [facility] Stop: 05/08/17 08:59 Last Admin: 03/11/17 08:27 Dose: 150 mg Zolpidem Tartrate (Ambien) 5 mg PO HS PRN PRN Reason: Insomnia Stop: 05/08/17 20:59
[2017-03-11] MEDS: Maalox 30 mL Cup PO PRN ×2 (11:36→21:17)
[2017-03-11] MEDS: Acetaminophen 500 MG TAB PO PRN (21:24)
--- NOTE | 2017-03-12 00:25 | Progress Notes ---
DATE: 03/10/2017 SUBJECTIVE: Chart reviewed and the patient interviewed. Also discussed the patient's condition with the staff and reviewed records and labs. The patient is still anxious and is still in a depressed mood, but he denies any thoughts of suicide or homicide. The patient also has been calm and cooperative. Also, is agreeable for treatment in a convalescent hospital to get some rehabilitation prior to his return home. ASSESSMENT: The patient is improving and not suicidal. TREATMENT PLAN: We will continue monitoring his behavior and his condition and continue to work on his irritability. JOB# [id number]
--- NOTE | 2017-03-12 00:49 | Progress Notes ---
DATE: 03/11/2017 SUBJECTIVE: Chart reviewed and the patient interviewed. Also discussed the patient's condition with the staff and reviewed the records. The patient is calm and cooperative. He also is interacting more. The patient also said that he feels less depressed. He denies any intention to hurt himself or others. The patient also said that he wants to rehabilitation and he wants to go to [facility] and he was interviewed yesterday by [facility] staff and in regard to what is the next step in his treatment. ASSESSMENT: At this time, the patient is not suicidal or psychotic. [facility]# [id number]
[2017-03-12] MEDS: Albuterol/Ipratropium Neb 3 ML AERS HHN SCH ×3 (01:09→13:17)
[2017-03-12] MEDS: INSULIN ASPART SLIDING SCALE 100 UNITS/ML UNIT SUBQ SCH ×2 (06:33→12:11)
[2017-03-12] MEDS: Multivitamin Tab PO SCH (08:26)
[2017-03-12] MEDS: Hydrocodone/APAP 10 mg/325 mg Tab PO PRN (08:30)
[2017-03-12] MEDS: Nicotine 21 mg/24 hr Tdm TD SCH (08:30)
[2017-03-12] MEDS: Maalox 30 mL Cup PO PRN (08:38)
--- NOTE | 2017-03-12 09:49 | General Progress Note ---
Subjective - Review of Systems Subjective: Patient is seen and examined. Patient says I feel much better .Patient denies fever,chill,chest pain,headache ,nausea,vomiting. Patient was not DC to [facility] yesterday. Objective - Results Result Diagrams: 03/11/17 05:15 03/11/17 05:15 Recent Labs: Laboratory Last Values WBC 17.4 Th/cmm (4.8-10.8) H D 03/11/17 05:15 RBC 3.89 Mil/cmm (4.30-5.70) L 03/11/17 05:15 Hgb 12.2 gm/dL (12-16) 03/11/17 05:15 Hct 35.6 % (41.0-60) L D 03/11/17 05:15 MCV 91.5 fl (80-99) 03/11/17 05:15 MCH 31.4 pg (26.0-30.0) H 03/11/17 05:15 MCHC Differential 34.4 pg (28.0-36.0) 03/11/17 05:15 RDW 13.8 % (11.5-20.0) 03/11/17 05:15 Plt Count 271 Th/cmm (150-400) 03/11/17 05:15 MPV 6.5 fl 03/11/17 05:15 Band Neutrophils % 4 % (0-10) 03/11/17 05:15 Neutrophils (Manual) 87 % (40-80) H 03/11/17 05:15 Lymphocytes 6 % (20-50) L 03/11/17 05:15 Monocytes 3 % (2-10) 03/11/17 05:15 Eosinophils 1 % (0-5) 03/09/17 09:50 Specimen Source Arterial 03/09/17 09:15 Sample Site Right Radial 03/09/17 09:15 pH 7.47 (7.35-7.45) H 03/09/17 09:15 pCO2 44.0 mmHg (35.0-45.0) 03/09/17 09:15 pO2 55.0 mmHg (80.0-100.0) L 03/09/17 09:15 HCO3 30.5 mEq/L (20.0-26.0) H 03/09/17 09:15 Base Excess 7.4 mEq/L (-3.0-3.0) H 03/09/17 09:15 O2 Saturation 90.0 % (92.0-100.0) L 03/09/17 09:15 Anthony Test YES 03/09/17 09:15 Vent Rate NA 03/09/17 09:15 Inspired O2 21 03/09/17 09:15 Tidal Volume NA 03/09/17 09:15 PEEP NA 03/09/17 09:15 Pressure (ins/psv/peep) NA 03/09/17 09:15 Critical Value SH 03/09/17 09:15 Sodium 137 mEq/L (136-145) 03/11/17 05:15 Potassium 4.4 mEq/L (3.5-5.1) 03/11/17 05:15 Chloride 104 mEq/L (98-107) 03/11/17 05:15 Carbon Dioxide 29.7 mEq/L (21.0-31.0) 03/11/17 05:15 Anion Gap 7.7 (7.0-16.0) 03/11/17 05:15 BUN 25 mg/dL (7-25) 03/11/17 05:15 Creatinine 0.6 mg/dL (0.7-1.3) L 03/11/17 05:15 Est GFR ( Amer) > 60.0 ml/min (>90) 03/11/17 05:15 Est GFR (Non-Af Amer) > 60.0 ml/min 03/11/17 05:15 BUN/Creatinine Ratio 41.7 03/11/17 05:15 Glucose 158 mg/dL (70-105) H 03/11/17 05:15 POC Glucose 138 MG/DL (70 - 105) H 03/11/17 17:03 Hemoglobin A1c % 6.8 % (4.0-6.0) H 03/10/17 05:00 Calcium 8.5 mg/dL (8.6-10.3) L 03/11/17 05:15 Total Bilirubin 0.2 mg/dL (0.3-1.0) L 03/11/17 05:15 AST 10 U/L (13-39) L 03/11/17 05:15 ALT 15 U/L (7-52) 03/11/17 05:15 Alkaline Phosphatase 50 U/L (34-104) 03/11/17 05:15 Troponin I 0.01 ng/mL (0.01-0.05) 03/09/17 09:50 Total Protein 5.8 gm/dL (6.0-8.3) L 03/11/17 05:15 Albumin 3.6 gm/dL (4.2-5.5) L 03/11/17 05:15 Globulin 2.2 gm/dL 03/11/17 05:15 Albumin/Globulin Ratio 1.6 (1.0-1.8) 03/11/17 05:15 - Physical Exam Vitals and I&O: Vital Signs Temp 97.8 F 03/12/17 04:00 Pulse 108 03/12/17 07:03 Resp 20 03/12/17 07:03 BP 136/82 03/12/17 04:00 Pulse Ox 96 03/12/17 07:03 Intake & Output 03/11/17 03/12/17 03/12/17 18:59 06:59 18:59 Intake Total 1350 400 Balance 1350 400 Weight (lbs) 87.543 kg 91.217 kg Intake: Oral 1350 400 Other: # Voids 5 2 # Bowel Movements 2 0 Active Medications: Current Medications Acetaminophen (Tylenol Extra Strength) 500 mg PO Q6H PRN PRN Reason: Pain (Mild) Stop: 05/08/17 04:28 Last Admin: 03/11/17 21:24 Dose: 500 mg Acetaminophen (Tylenol) 650 mg PO Q4H PRN PRN Reason: Pain or Fever >101 Acetaminophen/Hydrocodone Bitart ([place] 10 Mg/325 Mg) 1 tab PO Q6H PRN PRN Reason: MODERATE PAIN Stop: 05/08/17 09:16 Last Admin: 03/12/17 08:30 Dose: 1 tab Al Hydrox/Mg Hydrox/Simethicone (Maalox) 30 ml PO PCHS PRN PRN Reason: GI DISTRESS Stop: 05/08/17 09:17 Last Admin: 03/12/17 08:38 Dose: 30 ml Albuterol/Ipratropium (Duoneb Neb) 3 ml HHN Q6HRT [facility] Stop: 05/08/17 12:59 Last Admin: 03/12/17 07:03 Dose: 3 ml Albuterol/Ipratropium (Duoneb Neb) 3 ml HHN Q2HRT PRN PRN Reason: Wheezing Stop: 05/08/17 09:15 Azithromycin (Zithromax) 500 mg PO DAILY [facility] Stop: 03/25/17 08:59 Last Admin: 03/12/17 08:26 Dose: 500 mg Insulin Aspart (Novolog Insulin Sliding Scale) 0 units SUBQ ACHS [facility] PRN Reason: Protocol Stop: 05/09/17 16:29 Last Admin: 03/12/17 06:33 Dose: Not Given Lorazepam (Ativan) 0.5 mg PO Q4HR [facility] PRN Reason: Protocol Stop: 05/08/17 11:59 Last Admin: 03/12/17 08:26 Dose: 0.5 mg Magnesium Hydroxide (Milk Of Magnesia) 30 ml PO HS PRN PRN Reason: GI DISTRESS Stop: 05/08/17 09:17 Miscellaneous (Probiotic Screen) 1 ea MC PRN PRN PRN Reason: PROTOCOL Stop: 05/09/17 15:44 Multivitamins/Vitamin C (Theragran) 1 tab PO DAILY [facility] Stop: 05/09/17 08:59 Last Admin: 03/12/17 08:26 Dose: 1 tab Nicotine (Nicotine Transdermal System) 21 mg TD DAILY [facility] Stop: 05/09/17 16:59 Last Admin: 03/12/17 08:30 Dose: 21 mg Nitroglycerin (Nitrostat) 0.4 mg SL Q5MIN PRN PRN Reason: Chest Pain Stop: 05/08/17 09:17 Prednisone (Deltasone) 20 mg PO BID [facility] Stop: 05/10/17 16:59 Last Admin: 03/12/17 08:26 Dose: 20 mg Quetiapine Fumarate (Seroquel) 50 mg PO HS [facility] PRN Reason: Protocol Stop: 05/08/17 20:59 Last Admin: 03/11/17 21:17 Dose: 50 mg Quetiapine Fumarate (Seroquel) 100 mg PO BID [facility] PRN Reason: Protocol Stop: 05/08/17 08:59 Last Admin: 03/12/17 08:29 Dose: 100 mg Trazodone HCl (Desyrel) 100 mg PO HS [facility] Stop: 05/08/17 20:59 Last Admin: 03/11/17 21:17 Dose: 100 mg Venlafaxine HCl (Effexor Xr) 150 mg PO DAILY [facility] Stop: 05/08/17 08:59 Last Admin: 03/12/17 08:29 Dose: 150 mg Zolpidem Tartrate (Ambien) 5 mg PO HS PRN PRN Reason: Insomnia Stop: 05/08/17 20:59 General: Alert, Oriented x3, Cooperative, No acute distress HEENT: Atraumatic, PERRLA, EOMI, Mucous membr. moist/pink Neck: Supple, JVD, +2 carotid pulse wo bruit Cardiovascular: Regular rate, Normal S1, Normal S2 Lungs: Normal air movement, Other (diffuse rhonchi+_) Abdomen: Bowel sounds, Soft Extremities: Pulses Neurological: Normal gait, Normal speech, Strength at 5/5 X4 ext Psych/Mental Status: Other (labile) - Procedures Procedures: Procedures Procedure Code Date ASSISTANCE WITH RESPIRATORY VENTILATION, 24-96 HRS, CPAP [id number] 03/07/17 Assessment/Plan - Assessment Assessment: COPD exacerbation. Atypical Chest pain. Psych disorder. Hypertension. DJD. SCOTT. Leucocytosis due to steroid. Chronic pain syndrome S/p nerve stimulator and marijuana dependance. Obesity. Steroid induced hyperglycemia. - Plan Plan: Stable for discharge. MAR reconciled. Continue current care. Discussed with RN.
== END 2017-03-12 13:50 | DRG 189 ==
LOC: ICU 02:40 → TELE 07:01 → MSI 03-11 09:15
PROVIDERS: ADMIT Internal Medicine; ATTEND Internal Medicine
PROC: 5A09457 Assistance with Respiratory Ventilation, 24-96 Consecutive Hours, Continuous Positive Airway Pressure (ICD-10-PCS; principal; 2017-03-09)
DX: J96.20 Acute and chronic respiratory failure, unspecified whether with hypoxia or hypercapnia (principal); E66.01 Morbid (severe) obesity due to excess calories; J44.1 Chronic obstructive pulmonary disease with (acute) exacerbation; F17.210 Nicotine dependence, cigarettes, uncomplicated; F29 Unspecified psychosis not due to a substance or known physiological condition; R07.89 Other chest pain; M19.90 Unspecified osteoarthritis, unspecified site; I10 Essential (primary) hypertension; F12.20 Cannabis dependence, uncomplicated; G89.4 Chronic pain syndrome; R73.9 Hyperglycemia, unspecified; G47.33 Obstructive sleep apnea (adult) (pediatric); T38.0X5A Adverse effect of glucocorticoids and synthetic analogues, initial encounter; Z68.31 Body mass index [BMI] 31.0-31.9, adult; Y92.89 Other specified places as the place of occurrence of the external cause; Z85.820 Personal history of malignant melanoma of skin
CPT/HCPCS: 36415-UA; 36600-90; 71045-TC; 80048-TC; 80053-TC; 82803-TC; 82948-90; 83036-90; 84484-TC; 85007-TC; 85027-TC; 93005; 94660; 94760; J0456; J1580; J1815; J2930; J3370; J7613; Z7610

== ENCOUNTER 2017-03-12 20:32 | Inpatient (IN) | payer MEDICARE ==
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
[2017-03-12 21:09] LABS: % EOSINOPHILS 0.1 % (0.0-5.0); % LYMPHOCYTES 12.4 % (20.0-50.0); % MONOCYTES 11.1 % (2.0-10.0); % NEUTROPHILS 76.4 % (40.0-80.0); HEMATOCRIT 39.1 % (41.0-60); HEMOGLOBIN 12.9 gm/dL (12-16); LYMPHOCYTE ABSOLUTE 1.6 Th/cmm (1.5-3.0); MEAN CELL VOLUME 91.4 fl (80-99); MEAN CORPUSCULAR HEMOGLOBIN 30.2 pg (26.0-30.0); MEAN CORPUSCULAR HGB CONC 33.1 pg (28.0-36.0); MEAN PLATELET VOLUME 6.1 fl; MONOCYTE ABSOLUTE 1.5 Th/cmm (0.3-1.0); PLATELET COUNT 308 Th/cmm (150-400); RED BLOOD COUNT 4.28 Mil/cmm (4.30-5.70); RED CELL DISTRIBUTION WIDTH 14.4 % (11.5-20.0)
[2017-03-12 21:13] LABS: WHITE BLOOD COUNT 13.1 Th/cmm (4.8-10.8)
[2017-03-12] MEDS ORDERED: Albuterol/Ipratropium Neb 3 ML AERS HHN ONE ×2 (21:22→21:34)
[2017-03-12 21:25] LABS: ALB/GLOB RATIO 1.6 (1.0-1.8); ALBUMIN 3.9 gm/dL (4.2-5.5); ALKALINE PHOSPHATASE 64 U/L (34-104); ANION GAP 8.4 (7.0-16.0); BILIRUBIN,TOTAL 0.2 mg/dL (0.3-1.0); BUN - UREA NITROGEN 25 mg/dL (7-25); CALCIUM SERUM 8.9 mg/dL (8.6-10.3); CARBON DIOXIDE 32.5 mEq/L (21.0-31.0); CHLORIDE 98 mEq/L (98-107); CHOLESTEROL 182 mg/dL (<200); CREATININE - SERUM 0.8 mg/dL (0.7-1.3); GFR AFRICAN-AMERICAN > 60.0 ml/min (>90); GFR NON AFRICAN-AMERICAN > 60.0 ml/min; GLUCOSE 130 mg/dL (70-105); HDL -HIGH DENSITY LIPOPROTEIN 80 mg/dL (23-92); POTASSIUM SERUM 3.9 mEq/L (3.5-5.1); SGOT 13 U/L (13-39); SGPT/ALT 22 U/L (7-52); SODIUM SERUM 135 mEq/L (136-145); TOTAL PROTEIN,SERUM 6.3 gm/dL (6.0-8.3); TRIGLYCERIDES 171 mg/dL (<150)
[2017-03-12 22:03] LABS: URINE MICROSCOPIC INDICATED? YES; URINE SOURCE CLEAN C
[2017-03-12 22:05] LABS: URINE BILIRUBIN NEGATIVE (NEGATIVE); URINE BLOOD NEGATIVE (NEGATIVE); URINE GLUCOSE (UA) NEGATIVE (NEGATIVE); URINE KETONE NEGATIVE (NEGATIVE); URINE LEUKOCYTE ESTERASE NEGATIVE (NEGATIVE); URINE NITRATE NEGATIVE (NEGATIVE); URINE PROTEIN NEGATIVE (NEGATIVE); URINE UROBILINOGEN 0.2 E.U./dL (0.2 - 1.0)
[2017-03-12 22:13] LABS: URINE CLARITY CLEAR (CLEAR); URINE COLOR YELLOW
[2017-03-12 22:14] LABS: URINE BACTERIA OCCASIONAL /hpf (NONE SEEN); URINE EPITHELIAL CELLS OCCASIONAL /lpf (FEW); URINE RBC 0-2 /hpf (0-5); URINE WBC 0-2 /hpf (0-5)
[2017-03-12 23:40] VITALS: BP 133/84
[2017-03-12] MEDS ORDERED: Magnesium Hydroxide (MOM) 30 mL UDC PO PRN (23:40)
--- NOTE | 2017-03-13 01:04 | Progress Notes ---
DATE: 03/12/2017 PSYCHIATRIC PROGRESS NOTE SUBJECTIVE: Staff was spoken to. The patient is interviewed. Mood is noted to be depressed. Affect is constricted. The patient is isolative and withdrawn. Insight and judgment are noted to be still impaired. Impulse control seems to be poor. The patient is stating that he has no energy and then has been feeling tired all the time. ASSESSMENT: The patient is severely depressed and suicidal. PLAN: To continue the patient with the supportive therapy, encouraged the patient to verbalize the concerns rather than to act out. JOB# [id number]
[2017-03-13] MEDS: Albuterol/Ipratropium Neb 3 ML AERS HHN SCH ×4 (01:17→20:10)
--- NOTE | 2017-03-13 05:49 | Progress Notes ---
DATE: SUBJECTIVE: Chart reviewed and the patient interviewed. Also discussed the patient's condition with the staff and reviewed records and labs. The patient's affect is brighter. The patient is less anxious and less depressed. Also, is interacting more with peers and with others. He denies any intention to harm himself or others and he is motivated for treatment. He still needs more physical therapy and he is participating with physical therapy and asking if he can go to [facility] to continue his treatment. ASSESSMENT: The patient is not suicidal or homicidal and the patient can be discharged to [facility] when medically stable. No need for the patient to go to any acute Psych Unit at this time. JOB# [id number]
[2017-03-13] MEDS: INSULIN ASPART SLIDING SCALE 100 UNITS/ML UNIT SUBQ SCH ×4 (06:49→20:18)
[2017-03-13] MEDS ORDERED: Haloperidol Lactate 5 mg/mL 1mL Vial IM ONE (08:00)
--- NOTE | 2017-03-13 11:16 | History & Physical ---
ADMIT DATE: 03/13/2017 PATIENT IDENTIFICATION: This is a 61-year-old male. CHIEF COMPLAINT: "I'm back." HISTORY OF PRESENT ILLNESS: A 61-year-old male with longstanding history of COPD, hypertension, DJD, chronic pain syndrome, admitted under my care at medical floor for COPD exacerbation. The patient was treated and subsequently discharged to [facility], but he was readmitted after the patient was having a period of agitation and aggressive behavior. PAST MEDICAL HISTORY: 1. Remarkable for COPD. 2. Hypertension. 3. DJD. 4. Chronic pain syndrome. 5. Psychotic disorder. MEDICATIONS AT HOME: Medication list has been reviewed and reconciled appropriately. ALLERGIES: The patient is not allergic to medications. SOCIAL HISTORY: The patient used to live in [place], currently homeless. He does have smoking cigarette. No alcohol or drug use. FAMILY HISTORY: Remarkable for diabetes and hypertension. REVIEW OF SYSTEMS: The patient denies any chest pain, ___, abdominal pain, nausea, vomiting, diarrhea, dysuria, hematuria, hematochezia, melena, no seizure or syncopal episode. Does admit to have some cough as well. PHYSICAL EXAMINATION: GENERAL: A 61-year-old, alert, awake, lying in the bed without any acute distress. VITAL SIGNS: Temperature 97.6, pulse is 68, respiratory rate 18, blood pressure 144/68. HEENT: Normocephalic, atraumatic. Extraocular muscles intact. Tongue was pink and coated. No oral lesions. No exudate. No sinus tenderness. External auditory canal, tympanic membranes are well visualized. NECK: Supple, no JVD. No hepatojugular reflex. No lymphadenopathy, thyromegaly, or carotid bruit. HEART: Both heart sounds are regular. No S3, no S4, no murmur. CHEST: Lung equal in expansion with mild expiratory wheezing. ABDOMEN: Soft. No guarding, no rigidity. Liver, spleen are not palpable. No palpable mass. EXTREMITIES: No edema, cyanosis, or clubbing. Pulses are +2. No calf tenderness noted. NEUROLOGIC: Nonfocal. AVAILABLE DIAGNOSTIC DATA: White count of 13.1, hemoglobin 12.9, platelet count 308. Sodium 135, potassium 3.9, chloride 98, CO2 is 32.5, anion gap of 8.4. Blood sugar 130. Lactic is 1.48. Liver functions are normal. Triglyceride 171. Urine is unremarkable. RPR is unremarkable. CLINICAL IMPRESSION: 1. Psychotic disorder exacerbation. 2. Steroid-induced hyperglycemia. 3. Hypertension. 4. Degenerative joint disease. 5. Chronic pain syndrome. 6. Psychotic disorder 7. History of a neurostimulator placement for the chronic pain. 8. LVH by 2D echocardiogram. PLAN: 1. The patient is admitted under psychiatric unit. The patient to get prednisone for 5 days. 2. Antibiotic. 3. Antihypertensive medication. 4. Glucoscan before meals and at bedtime and covering with sliding scale insulin. 5. Psychotic evaluation and management deferred to psychiatrist. 6. Medication management. 7. Follow lab. 8. Care plan reviewed and discussed with the staff as well. JOB# [id number]
[2017-03-13] MEDS: Multivitamin Tab PO SCH (12:11)
[2017-03-14] MEDS: Albuterol/Ipratropium Neb 3 ML AERS HHN SCH ×4 (01:23→19:52)
[2017-03-14] MEDS: INSULIN ASPART SLIDING SCALE 100 UNITS/ML UNIT SUBQ SCH ×4 (06:45→21:11)
[2017-03-14] MEDS: Multivitamin Tab PO SCH (09:45)
[2017-03-14] MEDS ORDERED: Probiotic Screen MC PRN (11:15)
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
[2017-03-14] MEDS: Maalox 30 mL Cup PO PRN (21:49)
[2017-03-15] MEDS: Albuterol/Ipratropium Neb 3 ML AERS HHN SCH ×4 (01:13→19:50)
[2017-03-15] MEDS: INSULIN ASPART SLIDING SCALE 100 UNITS/ML UNIT SUBQ SCH ×4 (06:46→21:21)
[2017-03-15] MEDS: Multivitamin Tab PO SCH (09:02)
[2017-03-15] MEDS: Lactobacillus Rhamnosus GG 15 Billion CFU CAP.SPRINK PO SCH (09:02)
--- NOTE | 2017-03-15 13:29 | Progress Notes ---
DATE: 03/14/2017 SUBJECTIVE: The patient was seen and evaluated. The patient's chart reviewed. Overnight, nurse states patient reported yesterday became very labile and aggressive and required emergent medication. Today on [id number] evaluation, he is very nonchalant, preoccupied, mostly wanting to get "[place]" for his pain. I discussed with him the importance here working his coping skills. MENTAL STATUS EXAMINATION: Guarded disengaged. ASSESSMENT AND PLAN: The patient who was discharged, but presented yesterday because of the aggressive episode that required emergent medications. At this point, we will continue to monitor and evaluate. Continue with the current medication regimen at this point and continue with ____ and pursuing a safe dispo when the patient is still medically stable and psychiatrically stable. JOB# [id number]
[2017-03-15] MEDS: Maalox 30 mL Cup PO PRN (22:24)
[2017-03-16] MEDS: Albuterol/Ipratropium Neb 3 ML AERS HHN SCH ×4 (00:49→19:03)
--- NOTE | 2017-03-16 02:14 | Progress Notes ---
DATE: SUBJECTIVE: The patient was seen and evaluated. The patient's chart reviewed. Overnight, nursing staff reported the patient has been easily irritable. He was overheard saying that " to kill someone" and then started laughing. Today on [id number] evaluation, the patient nonchalantly says "it was just a joke, I didn't mean anything, I don't have a weapon, I just wanted to scare people". MENTAL STATUS EXAMINATION: Still observed to be extremely impulsive, poor insight in regards to his comments, delusion. ASSESSMENT AND PLAN: The patient is a 61-year-old male with previous history of schizoaffective disorder, bipolar type with also antisocial personality traits making poor judgment and recall. We will start the patient on 1:1 sitter to observe the patient who re-ensured stability of the patient, but also the stability and safety of others. Continue with the current medication regimen, which include quetiapine 50 mg at nighttime and 100 mg p.o. b.i.d. and Effexor 225 which were recently adjusted to target the patient's still labile behavior, although increased the nighttime dose of quetiapine to 100 for a total of 300. JOB# [id number]
[2017-03-16] MEDS: INSULIN ASPART SLIDING SCALE 100 UNITS/ML UNIT SUBQ SCH ×4 (07:21→21:09)
[2017-03-16] MEDS: Multivitamin Tab PO SCH (08:14)
[2017-03-16] MEDS: Lactobacillus Rhamnosus GG 15 Billion CFU CAP.SPRINK PO SCH (08:14)
[2017-03-16] MEDS: Maalox 30 mL Cup PO PRN ×2 (14:52→21:07)
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
[2017-03-17] MEDS: Albuterol/Ipratropium Neb 3 ML AERS HHN SCH ×4 (00:57→19:00)
[2017-03-17] MEDS: INSULIN ASPART SLIDING SCALE 100 UNITS/ML UNIT SUBQ SCH ×4 (06:41→21:04)
[2017-03-17] MEDS: Multivitamin Tab PO SCH (08:03)
[2017-03-17] MEDS: Lactobacillus Rhamnosus GG 15 Billion CFU CAP.SPRINK PO SCH (08:04)
--- NOTE | 2017-03-17 15:51 | Progress Notes ---
DATE: 03/17/[address] Collins. Case was discussed with staff outpatient records. The patient when I talked to him today, he reported and also the staff that ____ he wants to leave today that he ____. He lives with his nephew and apparently he was at [facility], but came back the same day of discharge that was when he was readmitted on 03/12/2017. He reports that he can go home with his nephew. He reports no current intent to harm himself or anybody. He denies current auditory or visual hallucinations. Denies feeling paranoid. He is calm and cooperative. He was able to tell me the date, where he is, why he is here, so he is not in a way holdable. I asked the lead case manager Nikky and I talked to Edie about it that the patient will need to verify that he has a safe place to go to prior to leaving as he insisted on leaving maybe to make it against medical advice. The patient is compliant with the medication with no side effects, no sedation, no nausea, no extrapyramidal symptoms. We will continue to work with the patient in group therapy, milieu therapy, adjust medication as needed. JOB# [id number]
[2017-03-18] MEDS: Albuterol/Ipratropium Neb 3 ML AERS HHN SCH ×4 (00:59→20:41)
[2017-03-18] MEDS: INSULIN ASPART SLIDING SCALE 100 UNITS/ML UNIT SUBQ SCH ×4 (06:42→21:09)
[2017-03-18] MEDS ORDERED: Haloperidol Lactate 5 mg/mL 1mL Vial ONE (07:07)
[2017-03-18] MEDS ORDERED: Haloperidol Lactate 5 mg/mL 1mL Vial IM ONE (07:20)
[2017-03-18] MEDS ORDERED: Haloperidol Lactate 5 mg/mL 1mL Vial IM STA (07:21)
[2017-03-18] MEDS: Lactobacillus Rhamnosus GG 15 Billion CFU CAP.SPRINK PO SCH (08:57)
[2017-03-18] MEDS: Multivitamin Tab PO SCH (08:58)
[2017-03-19] MEDS: Albuterol/Ipratropium Neb 3 ML AERS HHN SCH ×4 (01:44→19:47)
--- NOTE | 2017-03-19 05:15 | Progress Notes ---
DATE: 03/18/2017 Chart reviewed and the patient interviewed. Also discussed the patient's condition with the staff and reviewed records and labs. The patient was extremely agitated and irritable earlier today and the patient was given Haldol, Ativan and Benadryl injection on emergency basis because of his aggressive behavior and his agitation. The patient also is still in angry and in irritable mood and still challenging staff and at times threatening them with difficulty following any of their directions. Also is still paranoid and suspicious. Otherwise, the patient currently seems to be slightly sedated from the injection that he did take earlier today. ASSESSMENT: The patient is still psychotic and still can be dangerous to others. TREATMENT PLAN: Continue to monitor his behavior and his condition closely. Also, we will increase Seroquel to 150 mg twice a day and 150 mg at bedtime and we will continue to monitor his behavior and his condition closely. [facility]# [id number]
[2017-03-19] MEDS: INSULIN ASPART SLIDING SCALE 100 UNITS/ML UNIT SUBQ SCH ×4 (08:14→20:31)
[2017-03-19] MEDS: Lactobacillus Rhamnosus GG 15 Billion CFU CAP.SPRINK PO SCH (08:30)
[2017-03-19] MEDS: Multivitamin Tab PO SCH (08:30)
[2017-03-20] MEDS: Albuterol/Ipratropium Neb 3 ML AERS HHN SCH ×2 (02:06→07:39)
[2017-03-20] MEDS: INSULIN ASPART SLIDING SCALE 100 UNITS/ML UNIT SUBQ SCH (06:33)
[2017-03-20] MEDS: Lactobacillus Rhamnosus GG 15 Billion CFU CAP.SPRINK PO SCH (09:00)
[2017-03-20] MEDS: Multivitamin Tab PO SCH (09:00)
--- NOTE | 2017-03-21 01:40 | Discharge Summary ---
DATE OF DISCHARGE: 03/20/2017 PATIENT'S AGE: 61. SEX: Male. PHYSICIAN: Rosa Collins M.D., M.P.H. FINAL DIAGNOSES: PRIMARY DIAGNOSES: Schizoaffective disorder, bipolar type, [id number] with psychotic features. MEDICAL DIAGNOSIS: Chronic obstructive pulmonary disease. REASON FOR HOSPITALIZATION: The patient was admitted to the hospital because of increased agitation and irritability and after the patient went to [facility] at the same day, he became agitated and irritable and came back to the hospital. HOSPITAL COURSE: The patient continued to be agitated and in irritable and angry mood. The patient also was suspicious and paranoid and easily agitated. Also was argumentative with the staff. The patient was continued to be monitored closely and he was given gabapentin and Zoloft, also continued to take his psychotropic medications. Gradually, the patient's affect was brighter. The patient was less irritable and less agitated. Placement was an issue and [facility] accepted the patient and the patient was discharged there. PHYSICAL EXAMINATION: Physical exam of the patient was basically short problems. AFTER DISCHARGE PLANS: The patient discharged from the hospital and [facility] with plan to follow up there. EXPECTED OUTCOME AFTER DISCHARGE: Fair if the patient continues with his outpatient treatment and will follow up there. JOB# [id number]
--- NOTE | 2017-03-21 01:51 | Progress Notes ---
DATE: 03/19/2017 SUBJECTIVE: Chart reviewed and the patient interviewed. Also discussed the patient's condition with the staff and reviewed records and labs. The patient is still extremely irritable and is still extremely agitated. The patient is still yelling and demanding and uncooperative with the staff. The patient yesterday has to be given emergency medications because he was verbally threatening staff and he was uncooperative with them and he was out of control and unable to follow staff directions. The patient seems to be slightly calmer today, but still demanding with episodes of yelling and screaming. ASSESSMENT: The patient is still agitated and psychotic. TREATMENT PLAN: Continue monitoring his behavior and his medications closely. Also, case management rn continued to work on discharge plans. I asked the staff on [facility] to come to interview the patient and they are coming today for interview. JOB# [id number]
== END 2017-03-20 09:00 | DRG 885 ==
LOC: ER 20:32 → GERO 22:05
PROVIDERS: ADMIT Psychiatry & Neurology Psychiatry; ATTEND Psychiatry & Neurology Psychiatry
PROC: 5A09557 Assistance with Respiratory Ventilation, Greater than 96 Consecutive Hours, Continuous Positive Airway Pressure (ICD-10-PCS; principal; 2017-03-13)
DX: F25.0 Schizoaffective disorder, bipolar type (principal); F29 Unspecified psychosis not due to a substance or known physiological condition; R45.851 Suicidal ideations; I11.9 Hypertensive heart disease without heart failure; D72.829 Elevated white blood cell count, unspecified; F17.210 Nicotine dependence, cigarettes, uncomplicated; J44.9 Chronic obstructive pulmonary disease, unspecified; R73.9 Hyperglycemia, unspecified; M19.90 Unspecified osteoarthritis, unspecified site; G89.4 Chronic pain syndrome; R00.0 Tachycardia, unspecified; F32.9 Major depressive disorder, single episode, unspecified; T38.0X5A Adverse effect of glucocorticoids and synthetic analogues, initial encounter; Y92.89 Other specified places as the place of occurrence of the external cause
CPT/HCPCS: 36415-UA; 80053-TC; 80061-TC; 81001-TC; 82948-90; 83605; 84443-TC; 85025-TC; 86592-TC; 90899; 93005; 94640; 94660; 94760; G0410; J1200; J1630; J1815; J2060; Z7610